=== PATIENT | female | born 1980 | race Caucasian/White ===

== ENCOUNTER 2017-10-19 13:16 | Emergency (ER) | payer MEDICAID ==
[~2017-10-19] VITALS: Ht 157.5 cm; Wt 90.9 kg
[2017-10-19 14:31] VITALS: Ht 157.5 cm; Wt 90.9 kg
[2017-10-19] MEDS ORDERED: CYCLOBENZAPRINE10 MG PO (16:56)
[2017-10-19 17:16] VITALS: BP 140/95
== END 2017-10-19 17:21 | disposition home or self-care (01) ==
LOC: D.ER 13:16
DX: M62.838 Other muscle spasm (principal); S00.93XA Contusion of unspecified part of head, initial encounter; S80.11XA Contusion of right lower leg, initial encounter; V43.52XA Car driver injured in collision with other type car in traffic accident, initial encounter; Y93.89 Activity, other specified; Y92.410 Unspecified street and highway as the place of occurrence of the external cause